=== PATIENT | male | born 2000 | race Caucasian/White ===

== ENCOUNTER 2024-10-13 16:26 | Inpatient (IN) | payer OTHER, SELFPAY ==
[2024-10-13] VITALS (9 sets, daily range): BP systolic 83–99; BP diastolic 60–74; BMI 22.3
--- NOTE | 2024-10-13 14:24 | ED.GENMED ---
History of Present Illness
General
Chief Complaint: Cold/Flu/URI Symptoms
Source: patient and family
Time Seen by Provider: 10/13/24 14:10
History of Present Illness
History of Present Illness:
24-year-old male, identifies as female, presenting to the emergency department for evaluation of upper respiratory like symptoms that have been ongoing for 11 days, continued cough, fevers, fatigue and generally feeling unwell during this time.
Patient and family went to urgent care 3 days ago where they were told the patient has a flu without any testing being performed and were sent home. Due to the symptoms persisting they decided to come to the ER today. Last dose of Motrin was
around 10 AM this morning. No other medications were taken. No known sick contacts, recent travel or recent antibiotics. No medication changes recently.
Past History
Past History
ED Past Medical History: None
ED Past Surgical History: Appendectomy
Social History
Tobacco: Non-smoker
Alcohol: None
Drug: None
Personal: Single
Living: with family
Employment: Employed
Family History
Family History: Other (Gluten sensitivity)
Review of Systems
Review of Systems
All Other Systems: ROS reviewed and negative except as documented in HPI and ROS
Phy Exam
Physical Exam
Physical Exam:
GENERAL: Alert , in no apparent distress, ill-appearing but nontoxic
HEAD: NCAT
EYE: conjunctiva clear
NECK: Supple
ENT: mmm.
CARDIAC: Borderline tachycardic rate and rhythm
LUNGS: Clear breath sounds bilaterally, no acute respiratory distress, no wheezes/rales/rhonchi
NEUROLOGICAL: Alert and oriented
SKIN: Warm and dry, skin intact.
MUSCULOSKELETAL: well perfused.
PSYCH: Normal and appropriate interaction.
Scores
Heart Failure Risk
Heart Failure Risk Score: Not Applicable
Heart Score for Chest Pain Patients
STEMI patient?: Not applicable
Withdrawal Assessment of Alcohol
Withdrawal Assessment Completed?: Not applicable
Course
Orders/Labs/Results
Orders:
Orders
10/13/24 14:17
Acetaminophen [Tylenol] 1,000 mg PO NOW STA
CR Chest - 2 Views Urgent
Comment:
Reason For Exam: cough, fever
10/13/24 14:22
COVID-19 Antigen Urgent
Source: Nasal Swab
Complete Blood Count/With Diff Urgent
Comprehensive Metabolic Panel Urgent
Influenza A+B Rapid Molecular Urgent
KIM Source: Nasal Swab
Specimen Description:
10/13/24 14:51
CefTRIAXone [Rocephin] 1,000 mg IV NOW STA
Doxycycline [Vibramycin] 100 mg PO NOW STA
10/13/24 14:52
0.9% Sodium Chloride 1000 ml [Nss] 2,000 ml IV NOW STA
10/13/24 15:00
Lactic Acid Q4H
Comment: CANCEL 2nd LACTIC ACID IF 1st LACTIC ACID IS LESS THAN 2
Blood Culture Q30M
KIM Source: Blood/Venous
Specimen Description:
10/13/24 15:30
Blood Culture Q30M
KIM Source: Blood/Venous
Specimen Description:
10/13/24 19:00
Lactic Acid Q4H
Comment: CANCEL 2nd LACTIC ACID IF 1st LACTIC ACID IS LESS THAN 2
Abnormal Lab Results
10/13/24
14:22
WBC 34.2 H 10^3/uL
(4.8-10.8)
RBC 3.69 L 10^6/uL
(4.70-6.10)
Hgb 11.4 L g/dL
(13.0-18.0)
Hct 31.5 L %
(39.0-52.0)
Plt Count 414 H 10^3/uL
(130-400)
Abs Immat Gran (auto) 0.8 H 10^3/uL
(0-0.05)
Absolute Neuts (auto) 28.5 H 10^3/uL
(1.4-6.5)
Absolute Monos (auto) 3.0 H 10^3/uL
(0.1-0.6)
Immature Gran % 2.4 H %
(0-0.5)
Neutrophils % 83.5 H %
(42.2-75.2)
Lymphocytes % 4.6 L %
(20.5-51.1)
Chloride 95 L mmol/L
(98-107)
Glucose 111 H mg/dl
(70-99)
Calcium 8.1 L mg/dl
(8.4-10.2)
10/13/24 14:22
10/13/24 14:22
Vital Signs
Initial and Last Documented VS:
Initial Vital Signs
Temp Pulse Resp BP Pulse Ox
100.3 F 112 18 99/72 95
10/13/24 12:55 10/13/24 12:55 10/13/24 12:55 10/13/24 12:55 10/13/24 12:55
Last Documented Vital Signs
Temp Pulse Resp BP Pulse Ox
100.3 F 112 18 99/72 95
10/13/24 12:55 10/13/24 12:55 10/13/24 12:55 10/13/24 12:55 10/13/24 12:55
MDM/Problems Addressed
Differential Diagnosis Includes:
COVID, flu, pneumonia, I did consider PE as patient is currently on oral contraceptive as part of her medication regimen
MDM/Problems Addressed:
24-year-old male, identifies as female, presenting to the ER for evaluation of cough and fever for 11 days, went to urgent care 3 days ago and was told patient had the flu but never did any testing to confirm flu or any other illness. Given
duration of the illness will check labs, COVID and flu swab as well as chest x-ray. PE being considered as potential diagnosis given patient is on oral contraceptives. Disposition pending
*Radiology
Radiology exam reviewed: radiology read reviewed (Bibasilar pneumonia)
*Pulse Oximetry
Patient hypoxic: no
*Critical Care Note
Total Time (30-74mins, 75-104mins- exclusive of procedures): Not Applicable
Patient Management
Discussion with other providers: Hospitalist
Escalation/DeEscalation of care consider admission/obs:
Patient has significant leukocytosis with leftward shift on labs. Chest x-ray shows bibasilar pneumonia. Given duration of illness, significant leukocytosis and bilateral pneumonia will treat with IV medications and admit for lab trending.
Hospitalist team accepts for continued evaluation and treatment.
ED Attending Note
-
Portions of this chart may have been created with voice recognition software.� Occasional wrong word or��sound alike� substitutions may have occurred due to the inherent limitations of voice recognition software.
Discharge Plan
Departure
Patient Disposition: Admit
Date of Disposition: 10/13/24
Time of Disposition: 15:05
Presentation/result/management discussed w/ accepting MD/DO: Hospitalist
Discharge Problem:
Pneumonia
Prescriptions:
No Action
polyethylene glycol 3350 [Purelax] 17 gram powder in packet
17 g PO DAILY PRN (Reason: constipation) Qty: 14 0RF
ondansetron 4 mg tablet,disintegrating
4 mg PO Q8H PRN (Reason: nausea and vomiting) Qty: 10 0RF
Referrals:
UNKNOWN - PT DOES,NOT KNOW [Family Provider] -
Interventions
Interventions:
*Risk Screen - Suicide Last Done: 10/13/24 12:55
*General Assessment Last Done: 10/13/24 12:55
*Neglect/Abuse Screening Last Done: 10/13/24 12:55
ED- Fall Risk Assessment Last Done: 10/13/24 13:49
*ED COVID-19 Vaccine History Last Done: 10/13/24 12:55
ED- Pulmonary Assessment Last Done: 10/13/24 13:49
Discharge Date and Time
Print Language: MACEDONIAN
[2024-10-13] MEDS: TYLENOL 1000 MG PO (14:25)
[2024-10-13 14:49] LABS: Hematocrit 31.5 % (39.0-52.0); Hemoglobin 11.4 g/dL (13.0-18.0); Mean Corp Hgb Conc. 36.2 g/dL (33.0-37.0); Mean Corpuscular Hgb 30.9 pg (27.0-31.0); Mean Corpuscular Volume 85.4 fL (80.0-94.0); Mean Platelet Volume 9.1 fL (7.4-10.4); Platelet Count 414 10^3/uL (130-400); Red Blood Cell Count 3.69 10^6/uL (4.70-6.10); Red Cell Dist. Width 13.2 % (11.5-14.5); White Blood Cell Count 34.2 10^3/uL (4.8-10.8)
[2024-10-13 15:07] LABS: % Basophils 0.4 % (0-2); % Eosinophils 0.2 % (0-6); % Immature Granulocytes 2.4 % (0-0.5); % Lymphocytes 4.6 % (20.5-51.1); % Monocytes 8.9 % (1.7-9.3); % Neutrophils 83.5 % (42.2-75.2); ALT (SGPT) 22 U/L (0-50); AST (SGOT) 19 U/L (17-59); Absolute Basophils 0.1 10^3/uL (0-0.2); Absolute Eosinophils 0.1 10^3/uL (0-0.7); Absolute Immature Granulocytes 0.8 10^3/uL (0-0.05); Absolute Lymphocytes 1.6 10^3/uL (1.2-3.4); Absolute Neutrophils 28.5 10^3/uL (1.4-6.5); Albumin 3.7 g/dl (3.5-5.0); Alkaline Phosphatase 72 U/L (38-126); Blood Urea Nitrogen 10 mg/dl (9-20); Calcium 8.1 mg/dl (8.4-10.2); Carbon Dioxide 25 mmol/L (22-30); Chloride 95 mmol/L (98-107); Glucose 111 mg/dl (70-99); Nucleated Red Blood Cells % 0 % (-); Potassium 3.9 mmol/L (3.5-5.1); Sodium 136 mmol/L (135-145); Total Bilirubin 0.5 mg/dl (0.2-1.3); Total Protein 6.6 g/dl (6.3-8.2); eGFR > 60.00
[2024-10-13 15:10] LABS: COVID-19 Antigen Negative (Negative)
--- NOTE | 2024-10-13 15:18 | HPS.HSE ---
Family Physician
-
Family Physician: NOT KNOW UNKNOWN - PT DOES
Chief Complaint
-
URI Symptoms
History of Present Illness
Patient is a 24-year-old male, who identifies as female, with no significant past medical history who presented to [place] [facility] for evaluation of URI symptoms for past 10+ days. Patient states around New Years URI symptoms started and has had a
consistent fever that would respond to acetaminophen and/or ibuprofen. Patient reports fevers, chills, shortness of breath, productive cough back pain and some intermittent nausea. Denies any chest pain, vomiting, constipation, diarrhea or urinary
symptoms. Patient seen in [facility] Monday where provider stated appears to be flu and instructions for supportive care were given, it was reported minimal workup was done and was not swabbed for influenza at that time.
Medical History
Past Medical History
Past Medical History: Reports Psychiatric
Past Surgical History: Reports Other
Additional Past Surgical History:
appendectomy
Social History
Tobacco: Non-smoker
Alcohol: Occasional
Drug: Marijuana (occasionally will smoke )
Personal: Single
Living: With Family
Employment: Employed
Family History
Family History: Not pertinent
Allergies / Home Medications
Allergies reflects when Allergies were last updated in [facility] [employer].
Home Medications with original date entered in [facility] [employer]
Allergy/Medication List:
Allergies
Allergy/AdvReac Type Severity Reaction Status Date / Time
No Known Allergies Allergy Verified 11/14/22 15:09
Home Medications
ascorbic acid (vitamin C) 500 mg tablet (Vitamin C) 500 mg PO DAILY 10/13/24
cholecalciferol (vitamin D3) 25 mcg (1,000 unit) tablet (Vitamin D3) 25 mcg PO DAILY 10/13/24
desvenlafaxine succinate 25 mg tablet,extended release 24 hr 25 mg PO DAILY 10/13/24
desvenlafaxine succinate 50 mg tablet,extended release 24 hr 50 mg PO DAILY 10/13/24
estradiol valerate 40 mg/mL intramuscular oil 8 mg IM TU 10/13/24
fluticasone propionate 50 mcg/actuation nasal spray,suspension 1 spray intranasal DAILYPRN PRN runny nose 10/13/24
guaifenesin 1,200 mg tablet, extended release 12 hr (Mucinex) 1,200 mg PO DAILYPRN PRN cough 10/13/24
ibuprofen 200 mg tablet 200 mg PO DAILYPRN PRN mild pain 10/13/24
magnesium oxide 200 mg PO DAILY 10/13/24
mirtazapine 30 mg tablet 30 mg PO HS 10/13/24
spironolactone 100 mg tablet 100 mg PO DAILY 10/13/24
Review of Systems
-
History Source: Patient
Constitutional: Reports Fever, Fatigue and Chills
EENT: Reports No Symptoms
Respiratory: Reports Cough
Cardiac: Reports No Symptoms
Abdomen/GI: Reports Other (back pain)
: Reports No Symptoms
Musculoskeletal: Reports No Symptoms
Skin: Reports No Symptoms
Neurological: Reports No Symptoms
Endocrine: Reports No Symptoms
Hematologic/Lymphatic: Reports No Symptoms
Psych: Reports No Symptoms
Physical Exam
Vital Signs
Vital Signs
Temp Pulse Resp BP Pulse Ox
100.3 F 112 18 99/72 95
10/13/24 12:55 10/13/24 12:55 10/13/24 12:55 10/13/24 12:55 10/13/24 12:55
Physical Exam
General: Well Developed, Well Nourished, No Apparent Distress, Comfortable, Conversant and Chills
HEENT: NormoCephalic, Moist mucous membranes, Atraumatic, Nose Appears Normal, Ears Appear Normal and Neck Nontender
Respiratory: Clear, Non Labored Respirations and Other (dry cough observed )
Cardiac: S1/S2 and Regular Rhythm; No Murmur, Rub or Gallop
Breast: Deferred by me
GI: Soft, Non Tender, Non Distended and Normal Bowel Sounds; No Organomegaly
Rectal: Deferred by Provider
Genito-urinary: Deferred by me
Musculoskeletal: No Clubbing, No Cyanosis and No Edema
Skin: Warm and IV/Catheter Site; No Rash
Neuro: Awake, Alert, AO x 3 and Nonfocal/grossly intact
Hematologic/Lymphatic: No Lymphadenopathy
Psych: Calm and Intact Judgment/Insight
Laboratory Results
-
10/13/24 14:22
10/13/24 14:22
Laboratory Results
Total Bilirubin 0.5 mg/dl (0.2-1.3) 10/13/24 14:22
AST 19 U/L (17-59) 10/13/24 14:22
ALT 22 U/L (0-50) 10/13/24 14:22
Alkaline Phosphatase 72 U/L (38-126) 10/13/24 14:22
Data Reviewed
-
Diagnostic Radiology: Report Reviewed by me (CXR: Mild bibasilar pneumonia)
Lab Data: Labs Reviewed by me (WBC 34.2, hgb 11.4, hct 31.5, neut 83.5, )
Impression/Plan
-
IMPRESSION/PLAN:
#sepsis 2/2 pneumonia
CXR: Mild bibasilar pneumonia
Influenza: negative
Covid: negative
- Admit to med/surg
- IV antibiotics
- supportive care
#depression/anxiety
- continue desvenlafaxine and mirtazapine
Code Status: Full Code
DVT Prophylaxis: Lovenox Sq
--- NOTE | 2024-10-13 15:32 | EDRN ---
Karen DURAND w/ hospitalist group in room w/ pt at this time.
[2024-10-13] MEDS: NSS 2000 ML IV (15:48)
[2024-10-13] MEDS: ROCEPHIN 1000 MG IV (16:04)
[2024-10-13] MEDS: VIBRAMYCIN 100 MG PO (16:05)
[2024-10-13 16:09] LABS: Lactic Acid 0.5 mmol/L (0.7-2.0)
--- NOTE | 2024-10-13 16:30 | EDRN ---
Pt administered a boxed lunch at this time.
--- NOTE | 2024-10-13 16:37 | W.PN.UPDATE ---
Update Note
Progress Note Update
This is an addendum to the H&P written by patient Seth on 10/13/2024. Patient seen and examined independently with FIELD REVIEWER.
24-year-old male who identifies as female presenting with 10 days of cough, shortness of breath, sore throat, body aches fever.
Patient with blood pressure of 99/72. Temperature 100.3.
COVID and influenza negative.
Labs show leukocytosis of 34.
Patient clinically septic. Chest x-ray shows mild bibasilar pneumonia. Check blood cultures, sputum culture. IV fluids, ceftriaxone/doxycycline. Hold spironolactone.
Patient also complaining of left lower back pain over the past 4 days which appears to be musculoskeletal. Continue to monitor for now.
--- NOTE | 2024-10-13 17:49 | EDRN ---
Pt is all sweaty at this time. Pt just received his dinner tray at this time. Pt awoke and is eating.
[2024-10-13] MEDS: NSS 1000 IV (20:04)
[2024-10-13] MEDS: TYLENOL 650 MG PO (21:59)
[2024-10-13] MEDS: STERILE WATER FOR INJECTION IV (22:57)
[2024-10-13] MEDS: MUCINEX 1200 MG PO (22:58)
[2024-10-13] MEDS: REMERON 30 MG PO (22:58)
[2024-10-14 00:03] LABS: Urine Albumin Negative (Neg - Trace); Urine Bilirubin Negative (Negative); Urine Character Clear (Clear); Urine Color Yellow; Urine Glucose Negative (Negative); Urine Ketone Negative (Negative); Urine Leukocyte Negative (Negative); Urine Nitrite Negative (Negative); Urine Occult Blood Negative (Negative); Urine Specific Gravity 1.005 (<1.030); Urine Urobilinogen Negative (Neg - 1+); Urine pH 6.5 (5.0-9.0)
[2024-10-14 05:35] VITALS: BP 96/67
[2024-10-14] MEDS: TYLENOL 650 MG PO ×2 (05:43→18:26)
[2024-10-14 05:47] LABS: Hematocrit 31.7 % (39.0-52.0); Hemoglobin 11.1 g/dL (13.0-18.0); Mean Corpuscular Hgb 30.6 pg (27.0-31.0); Mean Corpuscular Volume 87.3 fL (80.0-94.0); Mean Platelet Volume 9.3 fL (7.4-10.4); Platelet Count 440 10^3/uL (130-400); Red Blood Cell Count 3.63 10^6/uL (4.70-6.10); Red Cell Dist. Width 13.2 % (11.5-14.5); White Blood Cell Count 26.6 10^3/uL (4.8-10.8)
[2024-10-14 06:12] LABS: Blood Urea Nitrogen 5 mg/dl (9-20); Calcium 7.8 mg/dl (8.4-10.2); Carbon Dioxide 27 mmol/L (22-30); Chloride 101 mmol/L (98-107); Estimated Creatinine Clearance 125 ml/min; Glucose 105 mg/dl (70-99); Potassium 3.5 mmol/L (3.5-5.1); Sodium 140 mmol/L (135-145); eGFR > 60.00
[2024-10-14] MEDS: NSS 1000 IV ×2 (06:39→17:48)
[2024-10-14] MEDS: VIBRAMYCIN 100 MG PO ×2 (08:45→20:56)
[2024-10-14] MEDS: MAGNESIUM OXIDE 250 MG PO (08:45)
[2024-10-14] MEDS: PRISTIQ 25 MG PO (08:45)
[2024-10-14] MEDS: VITAMIN C 500 MG PO (08:46)
[2024-10-14] MEDS: PRISTIQ 50 MG PO (08:46)
[2024-10-14] MEDS: VITAMIN D3 (cholecalciferol) 25 MCG PO (08:53)
[2024-10-14 11:22] VITALS: BP 93/69
--- NOTE | 2024-10-14 13:52 | W.PN.HOSP.TC ---
Today's Communication/Plan
-
Assessment / Plan
Assessment / Plan
NAD
Scleral Anicteric
MMM
No JVD
CTABL
RRR, S1/S2
Soft, NT, ND, BS+
Warm, Dry
AAOx3
Calm
Sepsis secondary to bibasilar pneumonia
-IV antibiotics
-Legionella negative, strep pneumo negative
-Sputum culture NGTD
-Blood culture no growth to date
-Influenza negative
-COVID-negative
-Incentive spirometer/Acapella
Male to female transition
-Continue estradiol
-Holding Aldactone as blood pressure on the lower
Anticipated Discharge: 24 - 48 hours
Subjective/Interval History
-
Date of Service: October 14, 2024
Seen and examined. No new complaints. No acute overnight events.
Still continues to have cough feels weak had mid thoracic lower back pain and some shoulder pain. This is likely related to coughing and musculoskeletal strain
Objective Data
-
Labs:
Laboratory Results
10/14/24
05:24
WBC 26.6 H
Hgb 11.1 L
Hct 31.7 L
Plt Count 440 H
Sodium 140
Potassium 3.5
Chloride 101
Carbon Dioxide 27
BUN 5 L
Creatinine 0.7
Glucose 105 H
Calcium 7.8 L
Vital Signs:
Vital Signs
Temp Pulse Resp BP Pulse Ox
98.7 F 88 18 93/69 99
10/14/24 11:24 10/14/24 05:35 10/14/24 05:35 10/14/24 11:22 10/14/24 11:25
--- NOTE | 2024-10-14 15:37 | CM ---
CM met with pt bedside
Pt transitioning M to F, Hermelinda is preferred named and utilizes she/they pronouns
Pt resides with her mother in a 2[address] with 1 [address], full flight to 2nd floor
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
Indep with no DMEs at home
PCP- Albert Campos (Billie) at [facility] in [facility]
Rx- [facility]
Discharge Disposition- home, no needs anticipated
[2024-10-14] MEDS: ROCEPHIN 1000 MG IV (15:48)
[2024-10-14 15:53] VITALS: BP 91/65
[2024-10-14 17:31] VITALS: BP 139/78
[2024-10-14] MEDS: STERILE WATER FOR INJECTION IV (17:49)
[2024-10-14] MEDS: LOVENOX 40 MG SC (18:20)
[2024-10-14 21:01] VITALS: BP 93/69
[2024-10-15] MEDS: TYLENOL 650 MG PO ×3 (00:42→16:37)
[2024-10-15] MEDS: REMERON 30 MG PO ×2 (00:43→20:48)
[2024-10-15] MEDS: MUCINEX 1200 MG PO (00:45)
[2024-10-15] MEDS: NSS 1000 IV (05:01)
[2024-10-15 05:02] VITALS: BP 90/68
[2024-10-15 05:13] LABS: Hemoglobin 9.8 g/dL (13.0-18.0); Mean Corpuscular Hgb 30.8 pg (27.0-31.0); Mean Corpuscular Volume 88.1 fL (80.0-94.0); Platelet Count 411 10^3/uL (130-400); Red Blood Cell Count 3.18 10^6/uL (4.70-6.10); Red Cell Dist. Width 13.4 % (11.5-14.5); White Blood Cell Count 17.5 10^3/uL (4.8-10.8)
[2024-10-15 05:36] LABS: Blood Urea Nitrogen 7 mg/dl (9-20); Carbon Dioxide 27 mmol/L (22-30); Chloride 104 mmol/L (98-107); Estimated Creatinine Clearance > 125 ml/min; Glucose 85 mg/dl (70-99); Sodium 140 mmol/L (135-145); eGFR > 60.00
[2024-10-15] MEDS: MAGNESIUM OXIDE 250 MG PO (08:29)
[2024-10-15] MEDS: VIBRAMYCIN 100 MG PO ×2 (08:29→20:48)
[2024-10-15] MEDS: VITAMIN D3 (cholecalciferol) 25 MCG PO (08:30)
[2024-10-15] MEDS: PRISTIQ 25 MG PO (11:13)
[2024-10-15] MEDS: PRISTIQ 50 MG PO (11:13)
[2024-10-15] MEDS: VITAMIN C 500 MG PO (11:13)
--- NOTE | 2024-10-15 14:06 | W.PN.HOSP.TC ---
Today's Communication/Plan
-
Assessment / Plan
Assessment / Plan
NAD
Scleral Anicteric
MMM
No JVD
CTABL
RRR, S1/S2
Soft, NT, ND, BS+
Warm, Dry
AAOx3
Calm
Sepsis secondary to bibasilar pneumonia
-IV antibiotics
-Legionella negative, strep pneumo negative
-Sputum culture NGTD
-Blood culture no growth to date
-Influenza negative
-COVID-negative
-Incentive spirometer/Acapella
-Consult infectious diseases as still hypotensive/borderline hypotensive however mental status intact
Male to female transition
-Continue estradiol
-Holding Aldactone as blood pressure on the lower
Anticipated Discharge: 24 - 48 hours
Subjective/Interval History
-
Date of Service: October 15, 2024
Seen and examined. No new complaints. No acute overnight events per
States feels unchanged. Still on room air. Mom sitting at bedside
Objective Data
-
Labs:
Laboratory Results
10/15/24
04:57
WBC 17.5 H
Hgb 9.8 L
Hct 28.0 L
Plt Count 411 H
Sodium 140
Potassium 4.0
Chloride 104
Carbon Dioxide 27
BUN 7 L
Creatinine 0.6 L
Glucose 85
Calcium 8.0 L
Vital Signs:
Vital Signs
Temp Pulse Resp BP Pulse Ox
98.5 F 94 18 90/68 93
10/15/24 12:23 10/14/24 17:31 10/14/24 17:31 10/15/24 05:02 10/15/24 05:06
I&O
10/14/24 10/15/24 10/16/24
06:59 06:59 06:59
Intake Total 1200 / 1200
Balance 1200 / 1200
--- NOTE | 2024-10-15 15:53 | CON.ID ---
Consultation
-
Date/Time Consultation Requested: 10/15/2024 0932
Date/Time Consultation Performed: 10/15/2024 1530
Requesting Provider: Dr. Wheat
Performing Provider: Dr. Childs
Reason for Consultation: Leukocytosis
Chief Complaint / Past History
History of Present Illness
Hermelinda Small is a 24-year-old trans female being evaluated the request of Dr. Wheat in regards to leukocytosis. History is obtained from chart review, along with patient interview. Additional history was obtained from the patient's mother who is
at the bedside
The patient reports that she was in her usual state of health up to around . She recalls that a day or 2 after [place] she felt ill with the development of dizziness, weakness and some difficulty walking. She recalls that she had
low-grade temperature of 99.8 along with chills and the development of sweats. Over the next several days she developed headache, progressive cough along with some nausea. Temperatures progressed to 102 intermittently. Approximately 3 days ago
she was seen at an urgent care where she was diagnosed with 'influenza A' although no testing was performed according to the mother. She was not prescribed any antibiotics recently. She notes no sick contacts.
Just prior to admission she complained of ongoing fever, headache and cough. She reports a production of yellow sputum. She also reports some sweats, but no weight loss.
Patient reports negative HIV testing in September.
Past History
Additional Past Medical History:
Insomnia
Additional Past Surgical History:
Appendectomy
Allergy History:
No Known Allergies Allergy (Verified 11/14/22 15:09)
Medications Reviewed: Yes
Current Antibiotics:
Ceftriaxone
Doxycycline
Social History
Tobacco: Smoker (Rare)
Alcohol: Occasional
Drug: Marijuana
Personal: Single
Living: With Family
Employment: Employed
Family History
Family History: Not Pertinent
Review of Systems
Vital Signs
Temp Pulse Resp BP Pulse Ox
98.5 F 94 18 90/68 93
10/15/24 12:23 10/14/24 17:31 10/14/24 17:31 10/15/24 05:02 10/15/24 05:06
Physical Exam
Physical Exam
Constitutional: No Acute Distress, Well Developed, Comfortable and Non-toxic
Head: Normocephalic
Eyes: Pupils Equal, Pupils Round, No Conjunctival Hemorrhage and Sclera Anicteric
Oral: No Thrush and No Ulcers
Cardiovascular: Regular Rate and S1/S2; Negative S3/S4
Pulmonary: Coarse and Non Labored; Negative Wheezes
Gastrointestinal: Soft, Non Tender, Non Distended, No Rebound and No Guarding
Extremities: Negative Edema, Cyanosis or Erythema
Skin: Warm and Dry; Negative Rash or Jaundice
Neurological: Awake, Alert and Oriented
Psychological: Calm
Lab / Diagnostic Study Results
10/15/24 04:57
10/15/24 04:57
Abs Immat Gran (auto) 0.8 10^3/uL (0-0.05) H 10/13/24 14:22
Absolute Neuts (auto) 28.5 10^3/uL (1.4-6.5) H 10/13/24 14:22
Absolute Lymphs (auto) 1.6 10^3/uL (1.2-3.4) 10/13/24 14:22
Absolute Monos (auto) 3.0 10^3/uL (0.1-0.6) H 10/13/24 14:22
Absolute Basos (auto) 0.1 10^3/uL (0-0.2) 10/13/24 14:22
Immature Gran % 2.4 % (0-0.5) H 10/13/24 14:22
Neutrophils % 83.5 % (42.2-75.2) H 10/13/24 14:22
Lymphocytes % 4.6 % (20.5-51.1) L 10/13/24 14:22
Monocytes % 8.9 % (1.7-9.3) 10/13/24 14:22
Eosinophils % 0.2 % (0-6) 10/13/24 14:22
Basophils % 0.4 % (0-2) 10/13/24 14:22
Lactic Acid Cancelled 10/13/24 19:00
Microbiology Results
Micro:
10/13/24 15:44 Blood Culture - Preliminary
Blood/Venous No Growth in 48 hours- Final report to follow
10/13/24 15:58 Blood Culture - Preliminary
Blood/Venous No Growth in 24 hours- Final report to follow
10/13/24 22:28 Legionella Urinary Antigen - Final
Urine Negative for Legionella pneumophila Serogroup 1 antigen.
A negative result does not rule out the possiblity of
Legionella infection due to other serogroups or species of
Legionella. Clinical correlation is recommended.
Streptococcus pneumoniae Antigen (M - Final
Negative for Streptococcus pneumoniae antigen.
A negative result does not exclude infection with
Streptococcus pneumoniae. Clinical correlation is
recommended.
10/13/24 14:22 Influenza Types A & B (RENA) - Final
Nasal Swab Negative for Influenza A & B, NAAT
Negative results must be combined with clinical observations
and patient history.
Nucleic Acid Amplification test (NAAT)performed on the
[employer] platform.
Imaging:
10/13/2024 CXR (2 view): Lungs show mild airspace disease bilaterally in the lower lobes consistent with pneumonia. No pleural effusion or pneumothorax.
Assessment / Plan
Community acquired pneumonia
Leukocytosis
Fevers
Sweats
Recommendations:
Continue with current course of antibiotics. (Ceftriaxone, doxycycline)
Check sputum culture if sample can be obtained (order has been placed). Results will need to be interpreted in the context of current antibiotic administration.
Monitor white count and temperature curve.
Continue with supportive measures.
[2024-10-15] MEDS: ROCEPHIN 1000 MG IV (15:59)
[2024-10-15] MEDS: STERILE WATER FOR INJECTION 10 ML IV (15:59)
[2024-10-15 16:22] VITALS: BP 91/60
[2024-10-15] MEDS: LOVENOX 40 MG SC (17:22)
[2024-10-15] MEDS: NON-FORMULARY ITEM 1 UNIT IM (21:11)
[2024-10-15 23:06] VITALS: BP 92/64
[2024-10-16] MEDS: TYLENOL 650 MG PO ×2 (01:12→09:37)
[2024-10-16 07:00] VITALS: BP 94/64
[2024-10-16 07:33] LABS: Hematocrit 29.4 % (39.0-52.0); Hemoglobin 10.2 g/dL (13.0-18.0); Mean Corp Hgb Conc. 34.7 g/dL (33.0-37.0); Mean Corpuscular Hgb 30.5 pg (27.0-31.0); Mean Platelet Volume 8.9 fL (7.4-10.4); Platelet Count 480 10^3/uL (130-400); Red Blood Cell Count 3.34 10^6/uL (4.70-6.10); Red Cell Dist. Width 13.7 % (11.5-14.5); White Blood Cell Count 12.2 10^3/uL (4.8-10.8)
[2024-10-16 08:18] LABS: Blood Urea Nitrogen 7 mg/dl (9-20); Calcium 8.9 mg/dl (8.4-10.2); Carbon Dioxide 29 mmol/L (22-30); Chloride 99 mmol/L (98-107); Estimated Creatinine Clearance 125 ml/min; Glucose 83 mg/dl (70-99); Sodium 138 mmol/L (135-145); eGFR > 60.00
[2024-10-16] MEDS: MAGNESIUM OXIDE 250 MG PO (09:26)
[2024-10-16] MEDS: VITAMIN C 500 MG PO (09:26)
[2024-10-16] MEDS: PRISTIQ 50 MG PO ×2 (09:26)
[2024-10-16] MEDS: VIBRAMYCIN 100 MG PO (09:26)
[2024-10-16] MEDS: VITAMIN D3 (cholecalciferol) 25 MCG PO (09:28)
[2024-10-16] MEDS: PRISTIQ 25 MG PO (09:31)
--- NOTE | 2024-10-16 11:30 | CM ---
Patient seen bedside with mother in room.
Hermelinda is hoping for d/c later today.
Patient denies home care needs..
Patient aware of showcase maker availability should needs arise.
Plan: home no needs anticipated.
--- NOTE | 2024-10-16 11:54 | W.PN.ID1 ---
Date of Service
Date of Service: October 16, 2024
Today's Communication
Continue abx.
Assessment / Plan
Community acquired pneumonia
Leukocytosis
- improved
Fevers
Sweats
Recommendations:
Continue antibiotics.
- At D/C transition rocephin to cefdinir.
- Continue abx through 10/22/24
Repeat CXR 4-6 weeks to assess for resolution of infiltrates.
Chief Complaint
-: Leukocytosis and Pneumonia
Subjective / Review of Systems
Review of Systems: No Fever, No Chills, Cough and Sputum Production (minimal)
Vital Signs / Physical Exam
Vital Signs
Vital Signs
Temp Pulse Resp BP Pulse Ox
99.0 F 87 18 94/64 98
10/16/24 07:00 10/16/24 07:00 10/16/24 07:00 10/16/24 07:00 10/16/24 07:00
Physical Exam
Constitutional: No Acute Distress, Well Developed, Comfortable and Non-toxic
Eyes: No Conjunctival Hemorrhage and Sclera Anicteric
Cardiovascular: S1/S2; Negative S3/S4
Pulmonary: Coarse and Non Labored
Gastrointestinal: Soft, Non Tender and Non Distended
Skin: Warm and Dry; Negative Rash or Jaundice
Neurological: Awake and Alert
Psychological: Calm
Objective Data
Lab Data
Lab Results
10/16/24 07:09
10/16/24 07:09
Estimated Creat Clear 125 ml/min 10/16/24 07:09
Lactic Acid Cancelled 10/13/24 19:00
Total Bilirubin 0.5 mg/dl (0.2-1.3) 10/13/24 14:22
AST 19 U/L (17-59) 10/13/24 14:22
ALT 22 U/L (0-50) 10/13/24 14:22
Alkaline Phosphatase 72 U/L (38-126) 10/13/24 14:22
Most recent labs reviewed.
Micro Results:
10/15/24 18:40 Respiratory Culture - Preliminary
Sputum Usual Respiratory Layla
Gram Stain - Preliminary
10/13/24 15:58 Blood Culture - Preliminary
Blood/Venous No Growth in 48 hours- Final report to follow
10/13/24 15:44 Blood Culture - Preliminary
Blood/Venous No Growth in 48 hours- Final report to follow
10/13/24 22:28 Legionella Urinary Antigen - Final
Urine Negative for Legionella pneumophila Serogroup 1 antigen.
A negative result does not rule out the possiblity of
Legionella infection due to other serogroups or species of
Legionella. Clinical correlation is recommended.
Streptococcus pneumoniae Antigen (M - Final
Negative for Streptococcus pneumoniae antigen.
A negative result does not exclude infection with
Streptococcus pneumoniae. Clinical correlation is
recommended.
10/13/24 14:22 Influenza Types A & B (RENA) - Final
Nasal Swab Negative for Influenza A & B, NAAT
Negative results must be combined with clinical observations
and patient history.
Nucleic Acid Amplification test (NAAT)performed on the
[employer] platform.
Imaging:
10/13/2024 CXR (2 view): Lungs show mild airspace disease bilaterally in the lower lobes consistent with pneumonia. No pleural effusion or pneumothorax.
Care Review
Plan reviewed with: Physician (Hospitalist)
--- NOTE | 2024-10-16 13:07 | W.PN.HOSP.TC ---
Addendum entered and electronically signed by Dc Wheat MD 10/16/24 13:17:
Complete additional 10 more days of antibiotics, not 5 more days
Original Note:
Today's Communication/Plan
-
Discharge home
Mom at bedside updated
More than 30 minutes spent in discharge including
Final examination of the patient
Summarizing hospital stay
Instructions for continuing care to all relevant caregivers
Preparation of discharge records, prescriptions, and referral forms
Total time spent (in minutes): 33
Assessment / Plan
Assessment / Plan
NAD
Scleral Anicteric
MMM
No JVD
CTABL
RRR, S1/S2
Soft, NT, ND, BS+
Warm, Dry
AAOx3
Calm
Sepsis secondary to bibasilar pneumonia
-IV antibiotics, transition to p.o. antibiotics complete 5 more days with cefdinir 300 mg twice a day and doxycycline 100 mg twice a day
-Legionella negative, strep pneumo negative
-Sputum culture NGTD
-Blood culture no growth to date
-Influenza negative
-COVID-negative
-Incentive spirometer/Acapella
-Consult infectious diseases as still hypotensive/borderline hypotensive however mental status intact
Male to female transition
-Continue estradiol
-Holding Aldactone as blood pressure on the lower end, will need to be evaluated by medical provider in order to resume Aldactone as blood pressure remains on the lower end however there is no evidence of hypotensive symptomatology noted
Anticipated Discharge: Today
Subjective/Interval History
-
Date of Service: October 16, 2024
Seen and examined. No new complaints. No acute overnight events.
Feeling much better. Still has intermittent headaches
Objective Data
-
Labs:
Laboratory Results
10/16/24
07:09
WBC 12.2 H
Hgb 10.2 L
Hct 29.4 L
Plt Count 480 H
Sodium 138
Potassium 4.0
Chloride 99
Carbon Dioxide 29
BUN 7 L
Creatinine 0.7
Glucose 83
Calcium 8.9
Vital Signs:
Vital Signs
Temp Pulse Resp BP Pulse Ox
99.0 F 87 18 94/64 98
10/16/24 07:00 10/16/24 07:00 10/16/24 07:00 10/16/24 07:00 10/16/24 07:00
I&O
10/15/24 10/16/24 10/17/24
06:59 06:59 06:59
Intake Total 1200 / 1200 1440 / 1440
Balance 1200 / 1200 1440 / 1440
--- NOTE | 2024-10-16 13:10 | W.DCSUMMARY ---
Discharge Summary
Discharge Data
Date of Admission: 10/13/24
Date of Discharge: 10/16/24
-
Pending Results: No
Hospital Course
Hermelinda is a 24 male to female with no significant history who presented with upper respiratory tract symptoms for 10+ days. Findings consistent with sepsis likely secondary to pneumonia with a white count of 34 that improved to 12. Chest x-ray
which demonstrated bibasilar pneumonia. Influenza and COVID-negative. Started on IV antibiotics. Evaluated by infectious diseases recommended continuation of cefdinir and doxycycline on to discharge. stop date of 10/26/24. Due to ongoing
borderline low blood pressure however mental status remained within normal recommend to continue to hold Aldactone/spironolactone. Follow-up with outpatient PCP. Resume Aldactone/spironolactone per outpatient provider recommendations.
Discharge Plan
-
Patient Disposition: Home (Routine Discharge)
Discharge Diagnosis/Procedures: Sepsis secondary to pneumonia
Diet: As tolerated
Activity: As tolerated
Activity Restrictions/Additional Instructions:
Presented with upper respiratory tract symptoms for 10+ days. Findings consistent with sepsis likely secondary to pneumonia with a white count of 34 that improved to 12. Chest x-ray which demonstrated bibasilar pneumonia. Influenza and
COVID-negative. Started on IV antibiotics. Evaluated by infectious diseases recommended continuation of cefdinir and doxycycline on to discharge with a stop date of 10/26/24. Due to ongoing borderline low blood pressure however mental status
remained within normal recommend to continue to hold Aldactone/spironolactone. Follow-up with outpatient PCP. Resume Aldactone/spironolactone per outpatient provider recommendations.
Instructions: Pneumonia in adults
Referrals:
UNKNOWN - PT DOES,NOT KNOW [Family Provider] -
Prescriptions:
New
cefdinir 300 mg capsule
300 mg PO BID Qty: 20 0RF
doxycycline hyclate 100 mg capsule
100 mg PO BID Qty: 20 0RF
Continued
ascorbic acid (vitamin C) [Vitamin C] 500 mg Tablet
500 mg PO DAILY
mirtazapine 30 mg Tablet
30 mg PO HS
ibuprofen 200 mg Tablet
200 mg PO DAILYPRN PRN (Reason: mild pain)
estradiol valerate 40 mg/mL oil
8 mg IM TU
fluticasone propionate 50 mcg/actuation Todd,Suspension
1 spray INTRANASAL DAILYPRN PRN (Reason: runny nose)
cholecalciferol (vitamin D3) [Vitamin D3] 25 mcg (1,000 unit) Tablet
25 mcg PO DAILY
guaifenesin [Mucinex] 1,200 mg Tablet Extended Release 12hr
1,200 mg PO DAILYPRN PRN (Reason: cough)
desvenlafaxine succinate 50 mg Tablet Extended Release 24 Hr
50 mg PO DAILY
desvenlafaxine succinate 25 mg Tablet Extended Release 24 Hr
25 mg PO DAILY
magnesium oxide 200 mg magnesium Tablet
200 mg PO DAILY
Held
spironolactone 100 mg Tablet
100 mg PO DAILY
Hold Instructions: Resume on 11/02/24. Seen medical provider prior to resuming blood pressure is within normal
Discharge Orders:
Discharge Patient (As Directed); Ordered 10/16/24
Ordered By: Dc Wheat
Discharge Date and Time
Print Language: ARABIC
[2024-10-16 13:40] VITALS: BP 90/67
== END 2024-10-16 14:09 | disposition home or self-care (01) | DRG 871 ==
LOC: 1 ACUTE 16:26
PROVIDERS: Nurse Practitioner Family; Physician Assistant Medical; ADMITTING PHYSICIAN Hospitalist; ATTENDING PHYSICIAN Hospitalist; CONSULT PHYSICIAN Internal Medicine Infectious Disease; EMERGENCY PHYSICIAN Student in an Organized Health Care Education/Training Program
DX: A41.89 Other specified sepsis (principal); J18.9 Pneumonia, unspecified organism
CPT/HCPCS: 71046; 80048; 80053; 81003; 83605; 85025; 85027; 87040; 87070; 87205; 87449; 87502; 87811; 87899; 99285